=== PATIENT | female | born 1975 | race Caucasian/White ===

== ENCOUNTER → 2017-04-20 | Outpatient (CLI) | payer BC | LOC: FIMAGING 08:35 | DX: Z13.820 Encounter for screening for osteoporosis (principal); Z82.62 Family history of osteoporosis | CPT/HCPCS: G0202 ==

== ENCOUNTER 2017-11-04 09:05 | Day surgery (SDC) | payer BC ==
--- NOTE | 2017-11-04 09:41 | EDPHY ---
H & P Stated Complaint: RLQ pain since yesterday Time Seen by Provider: 11/04/17 09:23 HPI/ROS: Chief Complaint: Right-sided abdominal pain HPI: 42-year-old woman started developing right upper lateral abdominal pain yesterday. Patient states she has been sore all night. It is actually feels better for delay on that side. Does hurt occasionally with movement. No cough or shortness of breath. No fevers or chills. No nausea vomiting. No diarrhea or constipation. There are no aggravating or alleviating factors. Does not have a history of similar episodes in the past. Pain is about a 5/10. She is not taking any medications for this. No history of abdominal surgeries. Does not know her last menstrual period as she is on Depo. No urinary urgency or frequency. ROS: 10 point Review of Systems is negative except as noted in the HPI. PMH: Denies Social History: No smoking, occasional alcohol, no recreational drug use Family History: non-contributory Physical Exam: Gen: Awake, Alert, No Distress HEENT: Nose: no rhinorrhea Eyes: PERRLA, EOMI Mouth: Moist mucosa Neck: Supple, no JVD Chest: Moderate right lateral lower rib tenderness palpation reproducing presenting complaint, lungs clear to auscultation Heart: S1, S2 normal, no murmur Abd: Soft, moderate right lower quadrant tenderness, no guarding Back: no CVA tenderness, no midline tenderness Ext: no edema, non-tender Skin: no rash Neuro: CN II-XII intact, Sensation grossly intact, Strength 5/5 in bilateral upper and lower extremities - Personal History LMP (Females 10-55): Irregular Current Tetanus/Diphtheria Vaccine: Yes Current Tetanus Diphtheria and Acellular Pertussis (TDAP): Yes - Medical/Surgical History Hx Asthma: No Hx Chronic Respiratory Disease: No Hx Diabetes: No Hx Cardiac Disease: No Hx Renal Disease: No Hx Cirrhosis: No Hx Alcoholism: No Hx HIV/AIDS: No Hx Splenectomy or Spleen Trauma: No Other PMH: PMH: denies. PSH: denies - Social History Smoking Status: Never smoked Constitutional: Initial Vital Signs Temperature (C) 36.9 C 11/04/17 09:06 Heart Rate 71 11/04/17 09:06 Respiratory Rate 18 11/04/17 09:06 Blood Pressure 139/90 H 11/04/17 09:06 O2 Sat (%) 98 11/04/17 09:06 Allergies/Adverse Reactions: Sulfa (Sulfonamide Antibiotics) Allergy (Verified 11/04/17 09:11) Home Medications: Medication Instructions Recorded NK [No Known Home Meds] 11/04/17 Medical Decision Making - Diagnostics Imaging Results: Imaging Impressions Chest X-Ray 11/04/17 09:32 Impression: No acute pulmonary disease. Imaging: Discussed imaging studies w/ yardage caller Radiologist, I viewed and interpreted images myself ED Course/Re-evaluation: CT scan shows acute appendicitis. A surgeon has been paged. I have ordered Invanz IV. Patient's pain is controlled. - Data Points Laboratory Results: Laboratory Results 11/04/17 09:25 11/04/17 09:25 11/04/17 11/04/17 11/04/17 10:30 09:25 09:25 WBC RBC Hgb Hct MCV MCH MCHC RDW Plt Count MPV Neut % (Auto) Lymph % (Auto) [place] % (Auto) Eos % (Auto) Baso % (Auto) Nucleat RBC Rel Count Absolute Neuts (auto) Absolute Lymphs (auto) Absolute Monos (auto) Absolute Eos (auto) Absolute Basos (auto) Absolute Nucleated RBC Immature Gran % Immature Gran # Sodium 144 mEq/L mEq/L (135-145) Potassium 4.2 mEq/L mEq/L (3.5-5.2) Chloride 105 mEq/L mEq/L (97-110) Carbon Dioxide 24 mEq/l mEq/l (22-31) Anion Gap 15 mEq/L mEq/L (8-16) BUN 14 mg/dL mg/dL (7-23) Creatinine 0.7 mg/dL mg/dL (0.6-1.0) Estimated GFR > 60 Glucose 96 mg/dL mg/dL (70-100) Calcium 9.8 mg/dL mg/dL (8.5-10.4) Total Bilirubin 0.8 mg/dL mg/dL (0.1-1.4) AST 22 IU/L IU/L (14-46) ALT 36 IU/L IU/L (9-52) Alkaline Phosphatase 106 IU/L IU/L (38-126) Total Protein 7.9 g/dL g/dL (6.3-8.2) Albumin 4.6 g/dL g/dL (3.5-5.0) Lipase 118 IU/L IU/L (23-300) Beta HCG, Qual NEGATIVE Urine Color YELLOW Urine Appearance CLEAR Urine pH 7.0 (5.0-7.5) Ur Specific [place] 1.008 (1.002-1.030) Urine Protein NEGATIVE (NEGATIVE) Urine Ketones NEGATIVE (NEGATIVE) Urine Blood 2+ H (NEGATIVE) Urine Nitrate NEGATIVE (NEGATIVE) Urine Bilirubin NEGATIVE (NEGATIVE) Urine Urobilinogen NEGATIVE EU EU (0.2-1.0) Ur Leukocyte Esterase NEGATIVE (NEGATIVE) Urine RBC 3-5 /hpf H /hpf (0-3) Urine WBC 1-3 /hpf /hpf (0-3) Ur Epithelial Cells TRACE /lpf /lpf (NONE-1+) Urine Glucose NEGATIVE (NEGATIVE) 11/04/17 09:25 WBC 9.97 10^3/uL H 10^3/uL (3.80-9.50) RBC 5.48 10^6/uL H 10^6/uL (4.18-5.33) Hgb 14.7 g/dL g/dL (12.6-16.3) Hct 43.6 % % (38.0-47.0) MCV 79.6 fL L fL (81.5-99.8) MCH 26.8 pg L pg (27.9-34.1) MCHC 33.7 g/dL g/dL (32.4-36.7) RDW 13.7 % % (11.5-15.2) Plt Count 264 10^3/uL 10^3/uL (150-400) MPV 9.3 fL fL (8.7-11.7) Neut % (Auto) 71.3 % % (39.3-74.2) Lymph % (Auto) 18.4 % % (15.0-45.0) [place] % (Auto) 7.3 % % (4.5-13.0) Eos % (Auto) 2.3 % % (0.6-7.6) Baso % (Auto) 0.4 % % (0.3-1.7) Nucleat RBC Rel Count 0.0 % % (0.0-0.2) Absolute Neuts (auto) 7.11 10^3/uL H 10^3/uL (1.70-6.50) Absolute Lymphs (auto) 1.83 10^3/uL 10^3/uL (1.00-3.00) Absolute Monos (auto) 0.73 10^3/uL 10^3/uL (0.30-0.80) Absolute Eos (auto) 0.23 10^3/uL 10^3/uL (0.03-0.40) Absolute Basos (auto) 0.04 10^3/uL 10^3/uL (0.02-0.10) Absolute Nucleated RBC 0.00 10^3/uL 10^3/uL (0-0.01) Immature Gran % 0.3 % % (0.0-1.1) Immature Gran # 0.03 10^3/uL 10^3/uL (0.00-0.10) Sodium Potassium Chloride Carbon Dioxide Anion Gap BUN Creatinine Estimated GFR Glucose Calcium Total Bilirubin AST ALT Alkaline Phosphatase Total Protein Albumin Lipase Beta HCG, Qual Urine Color Urine Appearance Urine pH Ur Specific [place] Urine Protein Urine Ketones Urine Blood Urine Nitrate Urine Bilirubin Urine Urobilinogen Ur Leukocyte Esterase Urine RBC Urine WBC Ur Epithelial Cells Urine Glucose Departure - Departure Disposition: [facility] Inpatient Acute Clinical Impression: Acute appendicitis Condition: Fair Referrals: Carine Horton MD [Primary Care Provider] - As per Instructions
[2017-11-04 09:43] LABS: PLATELET COUNT 264 10^3/uL (150-400)
[2017-11-04] MEDS ORDERED: IOPAMIDOL (ISOVUE-300) 100 ML BTL ONE (11:32)
[2017-11-04] MEDS ORDERED: ERTAPENEM 1 GM VIAL IV ONE (12:02)
--- NOTE | 2017-11-04 12:43 | PDGENHP ---
History and Physical - Chief Complaint abdominal pain - History of Present Illness Otherwise healthy 42-year-old female who stated she started to have right lower quadrant pain starting last evening. She stated that the pain progressed, and worsened throughout the night, a brief check on the internet said she had appendicitis and she presented here. She describes 6/10 right lower quadrant pain without radiation in describes the pain as sharp and burning. In addition to the pain, she denies having any fevers chills nausea or vomiting. She has never had pain like this before. Her last oral intake was last evening, she did have some sips of water earlier today. 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 [facility] Review of Systems Review of Systems: ROS: 10pt was reviewed & negative except for what was stated in HPI & below Physical Exam Physical Exam: Temp Pulse Resp BP Pulse Ox 36.7 C 81 18 135/78 H 95 11/04/17 12:00 11/04/17 12:00 11/04/17 12:00 11/04/17 12:00 11/04/17 12:00 Constitutional: no apparent distress, appears nourished, not in pain Eyes: PERRL, anicteric sclera, EOMI Ears, Nose, Mouth, Throat: moist mucous membranes, hearing normal, ears appear normal, no oral mucosal ulcers Cardiovascular: regular rate and rhythym, no murmur, rub, or gallop, No edema Respiratory: no respiratory distress, no rales or rhonchi, clear to auscultation Gastrointestinal: normoactive bowel sounds, other (Tender to palpation in the right lower quadrant with rebound tenderness.) Genitourinary: no bladder fullness, no bladder tenderness Skin: warm, normal color, no rashes or abrasions, no fluctuance, no induration, No mottled Musculoskeletal: full muscle strength, no muscle tenderness, normal joint ROM, no joint effusions Psychiatric: interacting appropriately, not anxious, not encephalopathic, thought process linear Lymph, Heme, Immunologic: no cervical LAD, no supraclavicular LAD Lab Data & Imaging Review 11/04/17 09:25 11/04/17 09:25 WBC 9.97 10^3/uL (3.80-9.50) H 11/04/17 09:25 RBC 5.48 10^6/uL (4.18-5.33) H 11/04/17 09:25 Hgb 14.7 g/dL (12.6-16.3) 11/04/17 09:25 Hct 43.6 % (38.0-47.0) 11/04/17:25 MCV 79.6 fL (81.5-99.8) L 11/04/17 09:25 MCH 26.8 pg (27.9-34.1) L 11/04/17 09:25 MCHC 33.7 g/dL (32.4-36.7) 11/04/17 09:25 RDW 13.7 % (11.5-15.2) 11/04/17 09:25 Plt Count 264 10^3/uL (150-400) 11/04/17:25 MPV 9.3 fL (8.7-11.7) 11/04/17 09:25 Neut % (Auto) 71.3 % (39.3-74.2) 11/04/17 09:25 Lymph % (Auto) 18.4 % (15.0-45.0) 11/04/17:25 [place] % (Auto) 7.3 % (4.5-13.0) 11/04/17 09:25 Eos % (Auto) 2.3 % (0.6-7.6) 11/04/17 09:25 Baso % (Auto) 0.4 % (0.3-1.7) 11/04/17:25 Nucleat RBC Rel Count 0.0 % (0.0-0.2) 11/04/17:25 Absolute Neuts (auto) 7.11 10^3/uL (1.70-6.50) H 11/04/17 09:25 Absolute Lymphs (auto) 1.83 10^3/uL (1.00-3.00) 11/04/17 09:25 Absolute Monos (auto) 0.73 10^3/uL (0.30-0.80) 11/04/17 09:25 Absolute Eos (auto) 0.23 10^3/uL (0.03-0.40) 11/04/17 09:25 Absolute Basos (auto) 0.04 10^3/uL (0.02-0.10) 11/04/17 09:25 Absolute Nucleated RBC 0.00 10^3/uL (0-0.01) 11/04/17 09:25 Immature Gran % 0.3 % (0.0-1.1) 11/04/17 09:25 Immature Gran # 0.03 10^3/uL (0.00-0.10) 11/04/17 09:25 Sodium 144 mEq/L (135-145) 11/04/17 09:25 Potassium 4.2 mEq/L (3.5-5.2) 11/04/17 09:25 Chloride 105 mEq/L (97-110) 11/04/17 09:25 Carbon Dioxide 24 mEq/l (22-31) 11/04/17 09:25 Anion Gap 15 mEq/L (8-16) 11/04/17 09:25 BUN 14 mg/dL (7-23) 11/04/17 09:25 Creatinine 0.7 mg/dL (0.6-1.0) 11/04/17 09:25 Estimated GFR > 60 11/04/17 09:25 Glucose 96 mg/dL (70-100) 11/04/17 09:25 Calcium 9.8 mg/dL (8.5-10.4) 11/04/17 09:25 Total Bilirubin 0.8 mg/dL (0.1-1.4) 11/04/17 09:25 AST 22 IU/L (14-46) 11/04/17 09:25 ALT 36 IU/L (9-52) 11/04/17 09:25 Alkaline Phosphatase 106 IU/L (38-126) 11/04/17 09:25 Total Protein 7.9 g/dL (6.3-8.2) 11/04/17 09:25 Albumin 4.6 g/dL (3.5-5.0) 11/04/17 09:25 Lipase 118 IU/L (23-300) 11/04/17 09:25 Beta HCG, Qual NEGATIVE 11/04/17 09:25 Urine Color YELLOW 11/04/17 10:30 Urine Appearance CLEAR 11/04/17 10:30 Urine pH 7.0 (5.0-7.5) 11/04/17 10:30 Ur Specific [place] 1.008 (1.002-1.030) 11/04/17 10:30 Urine Protein NEGATIVE (NEGATIVE) 11/04/17 10:30 Urine Ketones NEGATIVE (NEGATIVE) 11/04/17 10:30 Urine Blood 2+ (NEGATIVE) H 11/04/17 10:30 Urine Nitrate NEGATIVE (NEGATIVE) 11/04/17 10:30 Urine Bilirubin NEGATIVE (NEGATIVE) 11/04/17 10:30 Urine Urobilinogen NEGATIVE EU (0.2-1.0) 11/04/17 10:30 Ur Leukocyte Esterase NEGATIVE (NEGATIVE) 11/04/17 10:30 Urine RBC 3-5 /hpf (0-3) H 11/04/17 10:30 Urine WBC 1-3 /hpf (0-3) 11/04/17 10:30 Ur Epithelial Cells TRACE /lpf (NONE-1+) 11/04/17 10:30 Urine Glucose NEGATIVE (NEGATIVE) 11/04/17 10:30 Visualized and Interpreted imaging results: Yes Interpretation: CT scan of the abdomen and pelvis shows acute appendicitis with a fair amount of surrounding inflammation, no olga lidia perforation identified Assessment & Plan Assessment: Acute appendicitis (Acute) Plan: 42-year-old female with acute appendicitis I discussed the CT scan findings as well as my physical exam findings with the patient in the emergency department today. I discussed the risks benefits and alternatives to laparoscopic appendectomy with the patient and she wishes to proceed. She has received 1 g in bands in the emergency department, will plan to proceed to the operating room as time permits.
[2017-11-04] MEDS ORDERED: MIDAZOLAM 2 MG/2 ML VIAL IVP ONE (13:25)
--- NOTE | 2017-11-04 13:25 | PDANEPAE ---
ANE History of Present Illness 42 year old with appendicytis ANE Past Medical History - Pulmonary History Hx Oxygen in Use at Home: No Hx Sleep Apnea: No - Endocrine History Hx Diabetes: No ANE Review of Systems Review of systems is: negative Review of Systems: ANE Patient History - Allergies Allergies/Adverse Reactions: Sulfa (Sulfonamide Antibiotics) Allergy (Verified 11/04/17 09:11) - Home Medications Home medications: home medication list seen and reviewed Home Medications: NK [No Known Home Meds] 11/04/17 [Last Taken Unknown] - NPO status NPO Since - Liquids (Date): 11/04/17 NPO Since - Liquids (Time): 07:00 - Anes Hx Anes Hx: no prior problems - Smoking Hx Smoking Status: Never smoked - Alcohol Use Alcohol Use: Other (2 glasses of wine per day) ANE Labs/Vital Signs - Labs Result Diagrams: 11/04/17 09:25 11/04/17 09:25 - Vital Signs Blood Pressure: 135/78 Heart Rate: 81 Respiratory Rate: 18 O2 Sat (%): 95 Height: 177.8 cm Weight: 88.451 kg ANE Anesthesia Plan Anesthesia Plan: general endotracheal anesthesia
[2017-11-04] MEDS ORDERED: SCOPOLAMINE HYDROBROMIDE 1 MG/3 DAYS PATCH TD SCH (13:30)
[2017-11-04] MEDS ORDERED: LR 1,000 ML IV ONE (13:39)
[2017-11-04] MEDS ORDERED: SCOPOLAMINE HYDROBROMIDE 1 MG/3 DAYS PATCH TD ONE (13:42)
[2017-11-04] MEDS ORDERED: BUPIVACAINE 0.25% 30 ML SDV ONE (13:50)
[2017-11-04] MEDS ORDERED: fentaNYL 100 MCG/2 ML INJ ONE ×2 (13:56→15:20)
[2017-11-04] MEDS ORDERED: PROPOFOL 200 MG/20 ML VIAL ONE (13:56)
[2017-11-04] MEDS ORDERED: HYDROCODONE/APAP 5/325 TAB PO PRN (14:54)
[2017-11-04] MEDS ORDERED: MEPERIDINE 25 MG/ML SYR IVP PRN (14:54)
[2017-11-04] MEDS ORDERED: fentaNYL 100 MCG/2 ML INJ IVP PRN (14:54)
[2017-11-04] MEDS ORDERED: ONDANSETRON 4 MG/2 ML VIAL IVP PRN (14:54)
[2017-11-04] MEDS ORDERED: NALOXONE HCL 0.4 MG/ML INJ IVP PRN (14:54)
[2017-11-04] MEDS ORDERED: PROMETHAZINE HCL 25 MG/ML INJ IVP PRN (14:54)
[2017-11-04] MEDS ORDERED: OXYCODONE/APAP 5/325 TAB PO PRN (14:54)
--- NOTE | 2017-11-04 14:56 | POSTANESTH ---
Post Anesthetic Evaluation Cardiovascular Status: Normal, Stable Respiratory Status: Normal, Stable Level of Consciousness/Mental Status: Can Participate in Eval Pain Control: Adequate, Prn Tx Ordered Nausea/Vomiting Control: Adequate, Prn Tx Ordered Complications Possibly Related to Anesthesia: None Noted
[2017-11-04 15:00] VITALS: TEMP 97.3
[2017-11-04] MEDS ORDERED: OXYCODONE/APAP 5/325 TAB ONE (15:24)
[2017-11-04 15:57] VITALS: BP 142/90; PULSE 62; RESP 16; O2SAT 98
--- NOTE | 2017-11-04 18:46 | POSTOPPROG ---
Post Op Note Date of Operation: 11/04/17 Surgeon: Angel Joseph Anesthesiologist: Warm Anesthesia: GET(General Endotracheal) Pre-op Diagnosis: appendicitis Post-op Diagnosis: same Procedure: laparoscopic appendectomy Findings: acute, non perforated Inf/Abcess present in the surg proc area at time of surgery?: No EBL: Minimal Total fluids administered: 1000cc NS washout Specimen(s): appendix
--- NOTE | 2017-11-05 01:33 | GOP ---
[f rep st] OPERATIVE REPORT DATE OF OPERATION: 11/04/2017 SURGEON: Angel Joseph MD [employer] MANAGER: None. ANESTHESIA: General endotracheal. ANESTHESIOLOGIST: Dr. Stiven Melendez. PREOPERATIVE DIAGNOSIS: Acute appendicitis. POSTOPERATIVE DIAGNOSIS: Acute appendicitis. PROCEDURE PERFORMED: Laparoscopic appendectomy. FINDINGS: Acute indurated nonperforated appendicitis. SPECIMENS: Appendix. ESTIMATED BLOOD LOSS: 5 cc. DESCRIPTION OF PROCEDURE: The patient was greeted in the preoperative suite. Once again, risks, annmarie efits, and alternatives were discussed. Consent was signed. She was then brought back to the operat wisam suite, placed on the OR table in supine position. After all anesthesia machines, including SCDs, were on and functioning, a World Health Organization time-out was performed ending with all in agree ment. After successful induction of general anesthesia, the patient's abdomen was prepped and draped in typical sterile fashion. I entered the abdomen via an infraumbilical cutdown through which the V eress needle was passed. I achieved pneumoperitoneum to 15 mmHg CO2, which was well tolerated by the patient. Through this, I inserted a 12 mm Visiport. After successfully in the abdomen, I placed 2 additional 5 mm trocars, 1 in the suprapubic, 1 in the left lower quadrant, both under direct visuali zation. I identified the appendix by tracing the taeniae inferiorly. I developed a window at the appendiceal base and successfully amputated the appendix off the cecal base with a single fire Endo-TOMER stapler. I then took the mesoappendix down using a Harmonic Scalpel. The specimen was then placed in an End oCatch bag and successfully removed. Hemostasis and the staple line were noted to be intact and hemo static. I irrigated the pelvis and right lower quadrant with normal saline, noting clear effluent in the suction canister. Local anesthesia was then infiltrated into the port sites which were then rem dylon under direct visualization. The infraumbilical port site was closed with an interrupted Vicryl stitch, noting excellent fascial reapproximation. The skin was closed with 4-0 Monocryl over which D ermabond was placed. The patient was then extubated in the operative suite and taken the PACU in sat isfactory condition. DRAINS: None. COUNTS: All counts were reported as correct x2. /[id number]/MODL
[2017-11-07] MEDS ORDERED: PATCH REMOVAL 1 EA PATCH TD SCH (13:29)
== END 2017-11-04 17:00 | disposition home or self-care (01) ==
LOC: UNDOADMIN 12:05 → FSGY 12:05
PROVIDERS: ATTEND Surgery
PROC: 0DTJ4ZZ Resection of Appendix, Percutaneous Endoscopic Approach (ICD-10-PCS; principal; 2017-11-04 13:30)
DX: K35.80 Unspecified acute appendicitis (principal); Z88.2 Allergy status to sulfonamides
CPT/HCPCS: 96374; J0171; J1335; J2250; J2704; J3010; Q9967

== ENCOUNTER 2018-03-08 07:40 | Emergency (ER) | payer BC ==
[2018-03-08] MEDS ORDERED: ONDANSETRON 4 MG/2 ML VIAL IVP ONE (08:08)
[2018-03-08] MEDS ORDERED: NS 1,000 ML IV ONE (08:08)
--- NOTE | 2018-03-08 08:11 | EDPHY ---
H & P Stated Complaint: LLQ ABD PAIN NAUSEA X 2 DAYS Time Seen by Provider: 03/08/18 07:59 HPI/ROS: CHIEF COMPLAINT: Left-sided abdominal pain HISTORY OF PRESENT ILLNESS: 42-year-old female presents with left lower quadrant pain. Onset sharp and stabbing left lower quadrant pain 36 hr ago. The pain has been persistent and moderate. Associated with nausea. No other associated symptoms and no alleviating or aggravating factors. No urinary sx and no radiation of pain. REVIEW OF SYSTEMS: complete 10 point ROS negative except at noted in the HPI - Personal History LMP (Females 10-55): Extended Cycle BCP/Inj Current Tetanus Diphtheria and Acellular Pertussis (TDAP): Yes - Medical/Surgical History Hx Asthma: No Hx Chronic Respiratory Disease: No Hx Diabetes: No Hx Cardiac Disease: No Hx Renal Disease: No Hx Cirrhosis: No Hx Alcoholism: No Hx HIV/AIDS: No Hx Splenectomy or Spleen Trauma: No Other PMH: PMH: denies. PSH: Appendectomy - Social History Smoking Status: Never smoked Alcohol Use: Sober Additional Social History: - Physical Exam Exam: General Appearance: Alert, pleasant Eyes: Pupils equal and round, no conjunctival pallor or injection ENT, Mouth: Mucous membranes moist Neck: Normal inspection Respiratory: Lungs are clear to auscultation Cardiovascular: Regular rate and rhythm Gastrointestinal: Abdomen is soft, left upper quadrant tenderness Neurological: A&O, nonfocal, normal gait Skin: Warm and dry, no rash Extremities: Normal inspection Psychiatric: Mood and affect normal Constitutional: Initial Vital Signs Temperature (C) 37 C 03/08/18 07:44 Heart Rate 73 03/08/18 07:44 Respiratory Rate 17 03/08/18 07:44 Blood Pressure 130/96 H 03/08/18 07:44 O2 Sat (%) 96 03/08/18 07:44 O2 Delivery Mode Room Air Allergies/Adverse Reactions: Sulfa (Sulfonamide Antibiotics) Allergy (Verified 03/08/18 07:43) Home Medications: Medication Instructions Recorded Cephalexin [Keflex (*)] 500 mg PO BID #10 cap 03/08/18 Zoloft 100mg (*) 03/08/18 Medical Decision Making - Diagnostics Imaging Results: Imaging Impressions Abdomen/Pelvis CT 03/08/18 08:33 Impression: 1. Bilateral ureters are mildly dilated. This could represent reflux or evidence for urinary tract infection. 2. No evidence for nephro or ureterolithiasis. 3. Constipation. 4. Bilateral ovarian cysts without free fluid. The left ovarian cyst is denser than the right, potentially indicating hemorrhage. Results called and discussed with ZENAIDA BECKMAN, at 03/08/2018 9:10 Attention: This CT examination is specifically designed to evaluate patients who are clinically suspected of having acute obstructive uropathy. This examination does not use radiographic contrast, and as such, provides only a limited evaluation of the abdomen, pelvis and retroperitoneum. If there is further clinical suspicion for pathological conditions other than obstructive uropathy, a complete CT evaluation of the abdomen and pelvis utilizing intravenous, oral, and rectal contrast should be considered. General information for patients regarding this examination can be found at [email or web address] If you have questions or comments about this report, please contact me at (hospital) or [phone] (cell). ED Course/Re-evaluation: This patient presents with left lower quadrant pain. Abdominal exam reveals tenderness in the left upper quadrant, but not left lower quadrant or pelvic area. CT scan of the abdomen pelvis without contrast ordered to evaluate for kidney stone versus diverticulitis. CT scan reveals bilateral ovarian cysts, constipation and duplicated left collecting system. Results discussed with the patient. Unclear etiology of pain. Urinalysis reveals a possible UTI. A urine culture was sent. I will treat her with Keflex. She has bilateral ovarian cysts, but no pelvic tenderness, no free fluid and I doubt that this is the etiology of her pain. She will take ibuprofen as needed for pain. Abdominal pain precautions given. Differential Diagnosis: Differential diagnosis includes though it is not limited to appendicitis, cholecystitis, diverticulitis, pyelonephritis, bowel perforation, small bowel obstruction. - Data Points Laboratory Results: Laboratory Results 03/08/18 08:04 03/08/18 08:04 03/08/18 03/08/18 03/08/18 08:09 08:04 08:04 WBC RBC Hgb POC Hgb 15.0 gm/dL gm/dL (12.6-16.3) Hct POC Hct 44 % % (38-47) MCV MCH MCHC RDW Plt Count MPV Neut % (Auto) Lymph % (Auto) Woodson % (Auto) Eos % (Auto) Baso % (Auto) Nucleat RBC Rel Count Absolute Neuts (auto) Absolute Lymphs (auto) Absolute Monos (auto) Absolute Eos (auto) Absolute Basos (auto) Absolute Nucleated RBC Immature Gran % Immature Gran # POC Sodium 141 mEq/L mEq/L (135-145) Sodium 142 mEq/L mEq/L (135-145) POC Potassium 3.7 mEq/L mEq/L (3.3-5.0) Potassium 4.2 mEq/L mEq/L (3.3-5.0) POC Chloride 107 mEq/L mEq/L (97-110) Chloride 108 mEq/L mEq/L (97-110) Carbon Dioxide 19 mEq/l L mEq/l (22-31) Anion Gap 15 mEq/L mEq/L (8-16) POC BUN 14 mg/dL mg/dL (7-23) BUN 14 mg/dL mg/dL (7-23) Creatinine 0.7 mg/dL mg/dL (0.6-1.0) POC Creatinine 0.7 mg/dL mg/dL (0.6-1.0) Estimated GFR > 60 Glucose 98 mg/dL mg/dL (70-100) POC Glucose 105 mg/dL H mg/dL (70-100) Calcium 9.2 mg/dL mg/dL (8.5-10.4) Beta HCG, Qual NEGATIVE Urine Color Urine Appearance Urine pH Ur Specific [place] Urine Protein Urine Ketones Urine Blood Urine Nitrate Urine Bilirubin Urine Urobilinogen Ur Leukocyte Esterase Urine RBC Urine WBC Ur Epithelial Cells Urine Bacteria Urine Glucose 03/08/18 03/08/18 08:04 07:56 WBC 8.13 10^3/uL 10^3/uL (3.80-9.50) RBC 5.21 10^6/uL 10^6/uL (4.18-5.33) Hgb 13.9 g/dL g/dL (12.6-16.3) POC Hgb Hct 43.1 % % (38.0-47.0) POC Hct MCV 82.7 fL fL (81.5-99.8) MCH 26.7 pg L pg (27.9-34.1) MCHC 32.3 g/dL L g/dL (32.4-36.7) RDW 14.6 % % (11.5-15.2) Plt Count 245 10^3/uL 10^3/uL (150-400) MPV 9.5 fL fL (8.7-11.7) Neut % (Auto) 68.1 % % (39.3-74.2) Lymph % (Auto) 22.1 % % (15.0-45.0) Woodson % (Auto) 7.1 % % (4.5-13.0) Eos % (Auto) 1.8 % % (0.6-7.6) Baso % (Auto) 0.7 % % (0.3-1.7) Nucleat RBC Rel Count 0.0 % % (0.0-0.2) Absolute Neuts (auto) 5.52 10^3/uL 10^3/uL (1.70-6.50) Absolute Lymphs (auto) 1.80 10^3/uL 10^3/uL (1.00-3.00) Absolute Monos (auto) 0.58 10^3/uL 10^3/uL (0.30-0.80) Absolute Eos (auto) 0.15 10^3/uL 10^3/uL (0.03-0.40) Absolute Basos (auto) 0.06 10^3/uL 10^3/uL (0.02-0.10) Absolute Nucleated RBC 0.00 10^3/uL 10^3/uL (0-0.01) Immature Gran % 0.2 % % (0.0-1.1) Immature Gran # 0.02 10^3/uL 10^3/uL (0.00-0.10) POC Sodium Sodium POC Potassium Potassium POC Chloride Chloride Carbon Dioxide Anion Gap POC BUN BUN Creatinine POC Creatinine Estimated GFR Glucose POC Glucose Calcium Beta HCG, Qual Urine Color YELLOW Urine Appearance CLEAR Urine pH 7.0 (5.0-7.5) Ur Specific [place] 1.010 (1.002-1.030) Urine Protein NEGATIVE (NEGATIVE) Urine Ketones NEGATIVE (NEGATIVE) Urine Blood NEGATIVE (NEGATIVE) Urine Nitrate NEGATIVE (NEGATIVE) Urine Bilirubin NEGATIVE (NEGATIVE) Urine Urobilinogen NEGATIVE EU EU (0.2-1.0) Ur Leukocyte Esterase 2+ H (NEGATIVE) Urine RBC 1-3 /hpf /hpf (0-3) Urine WBC 3-5 /hpf H /hpf (0-3) Ur Epithelial Cells TRACE /lpf /lpf (NONE-1+) Urine Bacteria TRACE /hpf H /hpf (NONE SEEN) Urine Glucose NEGATIVE (NEGATIVE) Medications Given: Discontinued Medications Sodium Chloride (Ns) 1,000 mls @ 0 mls/hr IV EDNOW ONE; Wide Open PRN Reason: Protocol Stop: 03/08/18 08:09 Last Admin: 03/08/18 08:14 Dose: 1,000 mls Ketorolac Tromethamine (Toradol) 15 mg IVP EDNOW ONE Stop: 03/08/18 09:17 Last Admin: 03/08/18 09:40 Dose: 15 mg Ondansetron HCl (Zofran) 4 mg IVP EDNOW ONE Stop: 03/08/18 08:09 Last Admin: 03/08/18 08:15 Dose: Not Given Point of Care Test Results: Chemistry 03/08/18 08:09 POC Sodium 141 mEq/L mEq/L (135-145) POC Potassium 3.7 mEq/L mEq/L (3.3-5.0) POC Chloride 107 mEq/L mEq/L (97-110) POC BUN 14 mg/dL mg/dL (7-23) POC Creatinine 0.7 mg/dL mg/dL (0.6-1.0) POC Glucose 105 mg/dL H mg/dL (70-100) ISTAT H&H 03/08/18 08:09 POC Hgb 15.0 gm/dL gm/dL (12.6-16.3) POC Hct 44 % % (38-47) Departure - Departure Disposition: Home, Routine, Self-Care Clinical Impression: Urinary tract infection Qualifiers: Urinary tract infection type: acute cystitis Hematuria presence: without hematuria Qualified Code(s): N30.00 - Acute cystitis without hematuria Abdominal pain Qualifiers: Abdominal location: left upper quadrant Qualified Code(s): R10.12 - Left upper quadrant pain Condition: Good Instructions: Ovarian Cyst (ED), Constipation (ED), Urinary Tract Infection in Women (ED) Additional Instructions: Ibuprofen 600 mg 3 times daily while the pain persists. Referrals: Carine Horton MD [Primary Care Provider] - 5-7 days, call for appt. Prescriptions: Cephalexin [Keflex (*)] 500 mg PO BID #10 cap
[2018-03-08 08:15] LABS: PLATELET COUNT 245 10^3/uL (150-400)
[2018-03-08] MEDS ORDERED: KETOROLAC 15 MG/1 ML SDV IVP ONE (09:16)
[2018-03-08 09:33] VITALS: BP 126/86
== END 2018-03-08 09:40 | disposition home or self-care (01) ==
DX: N30.00 Acute cystitis without hematuria (principal); B95.1 Streptococcus, group B, as the cause of diseases classified elsewhere; E86.9 Volume depletion, unspecified
CPT/HCPCS: 82435-PO; 82565-PO; 82947-PO; 84132-PO; 84295-PO; 84520-PO; 85014-PO; 96374; J1885; J2405

== ENCOUNTER → 2018-04-27 | Outpatient (CLI) | payer BC | LOC: FIMAGING 09:44 | PROVIDERS: ATTEND Family Medicine | DX: Z12.31 Encounter for screening mammogram for malignant neoplasm of breast (principal) ==